=== PATIENT | male | born 1960 | race Hispanic/Latino ===

== ENCOUNTER 2017-07-10 08:35 | Outpatient (CLI) | payer MEDICARE ==
--- OUTSIDE RECORDS SUMMARY | 2017-07-10 08:39 | XMS | Clinical Summary ---
:1960 Author Organization [facility] Address [address] [place] [address] Phone Care Team Providers Name Role Phone , Primary Care Provider Unavailable Allergies Not on File Current Medications Not on file Active Problems Not on file Social History Tobacco Use Types Packs/Day Years Used Date Never Assessed Sex Assigned at Date Recorded Not on file Last Filed Vital Signs Not on file Plan of Treatment Not on file Results Not on filefrom Last 3 Months
[2017-07-10 10:30] LABS: Anion Gap 13 mmol/L (10-20); BUN (Urea Nitrogen) 13 mg/dL (8.4-25.7); Calc. Creatinine Clearance 0 mL/min (70-130); Calcium 9.3 mg/dL (7.8-10.44); Carbon Dioxide 26 mmol/L (22-29); Chloride 100 mmol/L (98-107); Estimated GFR-MDRD 76
--- NOTE | 2017-07-10 12:09 | CT ---
CT ABDOMEN AND PELVIS WITH AND WITHOUT IV CONTRAST: HISTORY: Prostatic hyperplasia. Dysuria. FINDINGS: The lung bases are clear. Each renal collecting system and ureter are decompressed without stone ap parent. The liver is diffusely hypodense. The kidneys have a normal appearance without focal mass. No filling defects are apparent within the urinary system on the delayed images. The prostate gla nd is 5.9 cm in transverse diameter. IMPRESSION: 1. No significant urinary tract abnormalities are apparent. 2. Hepatosteatosis. POS: [facility]
[2017-07-10] MEDS ORDERED: Iopamidol 370 76% 100 ML VIAL ONE (16:36)
== END 2017-07-10 08:36 | disposition home or self-care (01) ==
LOC: CT 08:35
PROVIDERS: ATTEND Urology
DX: N40.0 Benign prostatic hyperplasia without lower urinary tract symptoms (principal); R31.29 Other microscopic hematuria; R10.9 Unspecified abdominal pain
CPT/HCPCS: 36415; 74178; 80048

== ENCOUNTER 2019-05-22 09:19 | Outpatient (CLI) | payer MEDICARE ==
--- NOTE | 2019-05-22 11:59 | RAD ---
FOUR VIEWS CERVICAL SPINE: History: Occlusion and stenosis. Chronic neck pain. FINDINGS: Base of skull and the open mouth views, limited evaluation of the odontoid process. Lateral masses of C1 and C2 articulate appropriately. On the AP projection, no malalignment. Predental space is normal. No prevertebral soft tissue swelling. On the lateral projection, cervical spine is adequately assessed from C1 through C7. Limited evaluation of the cervicothoracic junction. Remote injury to the anterior/inferior aspect of C5 is noted. Vertebral body height is maintained. No fracture. No loss of disc space height. IMPRESSION: Unremarkable cervical spine radiographic series. POS: OFF
== END 2019-05-22 09:20 | disposition home or self-care (01) ==
LOC: SCSRAD 09:19
PROVIDERS: ATTEND Psychiatry & Neurology Neurology
DX: I66.09 Occlusion and stenosis of unspecified middle cerebral artery (principal)
CPT/HCPCS: 72040

== ENCOUNTER 2019-06-05 13:03 | Outpatient (CLI) | payer MEDICARE ==
--- NOTE | 2019-06-05 14:41 | MRI ---
Cervical spine MRI without contrast: 06/05/2019 COMPARISON: None HISTORY: Cervical disc disease TECHNIQUE: Multiplanar multisequence MR imaging of the cervical spine is obtained without contrast FINDINGS: The sagittal STIR imaging demonstrates no focal area of osseous marrow edema. Cervical vertebral body height and alignment appears within normal limits. No prevertebral soft tissu e swelling. There is straightening of the normal cervical lordosis. There is mild degenerative change at the atlantoaxial interspace. C2-3: No central canal or neural foraminal stenosis. C3-4: Tiny central disc protrusion and associated annular tear noted with no central canal or neural foraminal stenosis. C4-5: No central canal or neural foraminal stenosis. C5-6: No central canal or neural foraminal stenosis. C6-7: No central canal or neural foraminal stenosis. C7-T1: No central canal or neural foraminal stenosis. No abnormal signal intensity is identified within the cervical cord. Regional bone marrow signal inte nsity appears within normal limits. IMPRESSION: Small central disc protrusion/annular tear at C3-4 with no associated central canal or ne ural foraminal stenosis.
== END 2019-06-05 13:04 | disposition home or self-care (01) ==
LOC: SCSMRI 13:03
PROVIDERS: ATTEND Psychiatry & Neurology Neurology
DX: M50.30 Other cervical disc degeneration, unspecified cervical region (principal)
CPT/HCPCS: 72141

== ENCOUNTER 2020-05-07 05:40 | Outpatient (CLI) | payer MEDICARE, OTHER ==
[2020-05-07 16:30] LABS: #Eosinphils 0.2 thou/uL (0.0-0.7); #Lymphocytes 1.8 thou/uL (1.20-3.40); #Monocytes 0.5 thou/uL (0.11-0.59); #Neutrophils 4.8 thou/uL (1.40-6.50); %Basophils 0.5 % (0.0-1.0); %Eosinophils 2.1 % (0.0-10.0); %Lymphocytes 24.8 % (21.0-51.0); %Neutrophils 65.5 % (42.0-75.0); Hemoglobin 15.6 g/dL (14.0-18.0); Mean Corpuscular HGB CONC 33.7 g/dL (32.0-36.0); Mean Corpuscular Hemoglobin 28.4 pg (27.0-31.0); Mean Corpuscular Volume 84.3 fL (78.0-98.0); Mean Platelet Volume 8.3 fL (7.4-10.4); Platelet Count 262 thou/uL (130-400); RBC Distribution Width 12.2 % (11.5-14.5); Red Blood Cell (RBC) Count 5.49 mill/uL (4.70-6.10); White Blood Cell (WBC) Count 7.3 thou/uL (4.8-10.8)
[2020-05-07 16:40] LABS: PTT 44.3 sec (22.9-36.1)
[2020-05-07 16:48] LABS: INR-International Normal Ratio 1.1; Prothrombin Time 14.4 sec (12.0-14.7)
[2020-05-07 16:48] LABS: Bacteria/HPF None Seen HPF (None Seen); Bilirubin Negative (Negative); Blood, Urine Negative (Negative); Clarity Clear (Clear); Glucose, Urine (Dipstick) Normal (Negative); Ketone, Urine Negative (Negative); Leukocyte Negative Leu/uL (Negative); Nitrite Negative (Negative); Protein, Urine (Dipstick) Negative (Neg-Trace); RBC/HPF 0-3 HPF (0-3); Specific Gravity, Urine 1.018 (1.002-1.036); Squamous Epithelial None Seen HPF (0-3); Urobilinogen Normal mg/dL (Less than 2); WBC/HPF 0-3 HPF (0-3)
[2020-05-07 16:54] LABS: Urine Culture Reflex No No
[2020-05-07 17:13] LABS: Anion Gap 16 mmol/L (10-20); BUN (Urea Nitrogen) 15 mg/dL (8.4-25.7); Calc. Creatinine Clearance 0 mL/min (70-130); Calcium 9.5 mg/dL (7.8-10.44); Carbon Dioxide 28 mmol/L (22-29); Chloride 98 mmol/L (98-107); Estimated GFR-MDRD 60; Glucose 106 mg/dL (70-105); Potassium 3.6 mmol/L (3.5-5.1); Sodium 138 mmol/L (136-145)
[2020-05-08 14:52] LABS: SARS-CoV-2 MS2 Positive; SARS-CoV-2 N Gene Negative; SARS-CoV-2 S Gene Negative; SARS-CoV-2 by NAA Not Detected (NotDetected); SARS-CoV-2 orf1ab Negative
== END 2020-05-07 05:41 | disposition home or self-care (01) ==
LOC: LABBT 05:40
PROVIDERS: ATTEND Urology
DX: Z01.812 Encounter for preprocedural laboratory examination (principal); Z11.59 Encounter for screening for other viral diseases; Z12.5 Encounter for screening for malignant neoplasm of prostate; Z87.898 Personal history of other specified conditions; R35.1 Nocturia; R31.29 Other microscopic hematuria; M51.36 Other intervertebral disc degeneration, lumbar region; G45.9 Transient cerebral ischemic attack, unspecified; G35 Multiple sclerosis; R39.11 Hesitancy of micturition; R33.0 Drug induced retention of urine
CPT/HCPCS: 80048; 81001; 85025; 85610; 85730; 87086; U0003; 87635

== ENCOUNTER 2020-05-12 07:13 | Day surgery (SDC) | payer MEDICARE ==
[2020-05-06 14:47] VITALS: BMI 30.7
[2020-05-12] MEDS ORDERED: Levofloxacin 500 mg/D5W 100 ml Premix Bag ONE (07:54)
[2020-05-12] MEDS ORDERED: Midazolam HCl 2 mg/2 ml Vial ONE (09:22)
[2020-05-12] MEDS ORDERED: Fentanyl 100 MCG/2 ML VIAL ONE (09:22)
[2020-05-12] MEDS ORDERED: PROPOFOL 200 MG/20 ML VIAL ONE (10:31)
[2020-05-12] MEDS ORDERED: Lidocaine 1% PF 5 ML VIAL ONE (10:31)
[2020-05-12] MEDS ORDERED: Phenazopyridine HCl 97.5 MG TABLET ONE (10:39)
[2020-05-12] MEDS ORDERED: HYDROcodone/Acetaminophen 5/325 mg Tablet ONE (12:51)
--- NOTE | 2020-05-12 13:32 | OP ---
DATE OF PROCEDURE: 05/12/2020 PREOPERATIVE DIAGNOSES: 1. Mr. Fields is a 58-year-old male with history of benign prostatic hyperplasia with incomplete emptying. 2. IPSS score of 27. POSTOPERATIVE DIAGNOSES: 1. Mr. Fields is a 58-year-old male with history of benign prostatic hyperplasia with incomplete emptying. 2. IPSS score of 27. PROCEDURE PERFORMED: Cystoscopy, UroLift implant x7. SURGEON: Sandra Parada DO ANESTHESIA: LMA. COMPLICATIONS: None apparent. DISPOSITION: To recovery room in stable condition. DRAINS: None. ESTIMATED BLOOD LOSS: Minimal. INDICATIONS FOR PROCEDURE AND HISTORY: Mr. Fields is a pleasant 58-year-old male with history of BPH, presents today for UroLift. He did undergo cystoscopy, volume study, urodynamics, this does demonstrate a component of obstructive component, and he desires to proceed with UroLift. He has been fully informed regarding possible secondary procedure, i.e., TURP, possible complications with UroLift implant due to migration, requiring further surgical intervention, chronic pain, clot retention , injury to adjacent organs. All questions were answered to his satisfaction and he desired to proceed. DESCRIPTION OF PROCEDURE: After an informed consent was signed, the patient was taken to the operating room, placed in a dorsal lithotomy position with the genital area prepped and draped in the usual surgical sterile fashion. Bilateral MONAE hose and SCDs were provided. A 22-Mongolian cystoscope was utilized for cystoscopy, which demonstrated normal anterior urethra. The prostatic urethra demonstrated bipolar hyperplasia, moderate in caliber with no median lobe. Bladder was entered, which demonstrated the UOs about 2 to 3 mm proximal to the bladder neck. At this time , we transitioned to a UroLift implant cystoscope with a visual obturator. We placed a left lateral implant first, staying away about 1.5 cm proximal to the bladder neck. We initially placed 3 implants on the left, 3 implants on the right. This created a good anterior channel. There was a mid prostatic urethra with bulging component. Therefore, we did add another implant on the left lateral lobe reducing the bulging component. He had a nice anterior channel from the visual inspection with the verumontanum. He tolerated the procedure uneventfully. We will give him a voiding trial in Day Stay and anticipate discharge without a Lee catheter. He will be sent home with ciprofloxacin for 3 days, Griffin velazquez Job ID: [id number] [facility]
== END 2020-05-12 15:55 | disposition home or self-care (01) ==
LOC: SDC 07:13
PROVIDERS: ATTEND Urology
PROC: 0T7D8DZ Dilation of Urethra with Intraluminal Device, Via Natural or Artificial Opening Endoscopic (ICD-10-PCS; principal; 2020-05-12)
DX: N40.1 Benign prostatic hyperplasia with lower urinary tract symptoms (principal); R39.14 Feeling of incomplete bladder emptying; R39.11 Hesitancy of micturition; R35.1 Nocturia; R31.29 Other microscopic hematuria; G35 Multiple sclerosis; Z79.82 Long term (current) use of aspirin; Z79.84 Long term (current) use of oral hypoglycemic drugs; Z79.899 Other long term (current) drug therapy
CPT/HCPCS: C1889; C9740; J1956; J2250; J2704; J3010

== ENCOUNTER 2020-05-13 02:48 | Emergency (ER) | payer MEDICARE, OTHER ==
[2020-05-13] MEDS ORDERED: B & O PR SCH (05:15)
--- NOTE | 2020-05-13 05:52 | CON ---
DATE OF CONSULTATION: 05/13/2020 This is a 59-year-old male, who was seen in the emergency room at [facility] yesterday, less than 24 hours ago. He underwent a urolith procedure by Dr. Parada. Looking through the records, he had some difficulty emptying and some gross hematuria and had to have a small caliber catheter placed before he went home. This was irrigated back in I think the day stay postop area, but seemed to be draining okay. He went home and said things seemed to be going well. Initially, urine was kind of bloody, but draining adequately, and then during the nighttime it stopped draining. He got distended, had a lot of discomfort and pain. Actually, I think he threw up once or twice, so they came into the ER. Nurses tried to irrigate the catheter of clots, but really could not get much more than maybe 1 clot to come out, kind of a pink to light red color urine. I came in to see him. He had a small caliber catheter in. He was still uncomfortable. We removed that catheter. He was sterilely prepped and draped with Betadine. He had 2 syringes of 2% Xylocaine jelly placed for topical anesthesia and had a 22-Japanese 3-way placed. Irrigated out a couple of small clots. He had 1 clot stuck to the end of the small catheter when it was removed. Could not get any other clots to come out. His urine with irrigation was light red. He had a lot of bladder spasm while doing this. We then plugged the irrigation port, hooked him up to a drainage bag. His urine was kind of a swan red. I did a bladder ultrasound at the bedside. His bladder was empty. 0 to 15 mL in 3 different checks. I think he is having a lot of bladder spasm right now. I do not think he is in clot retention at this point. I think he probably was when he came in. I have written to give him a B and O suppository now. I would like to watch him for about an hour in the ER. I would also like him to drink plenty of fluids and see if his urine is clearing. If his urine is clearing, he is comfortable, and a repeat bladder scan in another hour shows that he is not becoming distended, then I think he could probably go home with this larger catheter and placing the catheter plug in place. I do not know that Dr. Parada will be able to remove his catheter today with him still having the hematuria and the difficulty urinating yesterday, but I will leave that up to her. If his urine is getting darker in terms of the hematuria or if he is starting to become distended, then we will need to admit him and put him on bladder irrigation. Job ID: [id number]
== END 2020-05-13 06:50 | disposition home or self-care (01) ==
LOC: ERS 02:48
DX: N40.1 Benign prostatic hyperplasia with lower urinary tract symptoms (principal); R33.8 Other retention of urine; R31.9 Hematuria, unspecified; I10 Essential (primary) hypertension; Z79.899 Other long term (current) drug therapy
CPT/HCPCS: 99283

== ENCOUNTER 2021-06-14 07:14 | Outpatient (CLI) | payer MEDICARE ==
[2021-06-14] MEDS ORDERED: Magnevist 469MG/ML 20 ML VIAL ONE (09:12)
== END 2021-06-14 07:15 | disposition home or self-care (01) ==
LOC: BICULT 07:14
PROVIDERS: ATTEND Psychiatry & Neurology Neurology
DX: G45.9 Transient cerebral ischemic attack, unspecified (principal)
CPT/HCPCS: 70553; 82565; 93880; A9579

== ENCOUNTER 2022-08-26 19:06 | Inpatient (IN) | payer MEDICARE ==
[2022-08-26 19:41] LABS: #Eosinphils 0.3 thou/uL (0.0-0.7); #Lymphocytes 1.8 thou/uL (1.20-3.40); #Monocytes 0.7 thou/uL (0.11-0.59); #Neutrophils 7.4 thou/uL (1.40-6.50); %Basophils 0.1 % (0.0-1.0); %Lymphocytes 17.7 % (21.0-51.0); %Monocytes 6.7 % (0.0-10.0); %Neutrophils 72.5 % (42.0-75.0); Mean Corpuscular HGB CONC 33.9 g/dL (32.0-36.0); Mean Corpuscular Hemoglobin 28.9 pg (27.0-31.0); Mean Corpuscular Volume 85.4 fl (78.0-98.0); Mean Platelet Volume 8.1 fL (7.4-10.4); Platelet Count 214 10x3/uL (130-400); RBC Distribution Width 12.6 % (11.5-14.5); Red Blood Cell (RBC) Count 4.83 mill/uL (4.70-6.10); White Blood Cell (WBC) Count 10.2 10x3/uL (4.8-10.8)
[2022-08-26 20:01] LABS: ALT (SGPT) 34 U/L (8-55); AST (SGOT) 29 U/L (5-34); Albumin 4.1 g/dL (3.4-4.8); Alkaline Phosphatase 141 U/L (40-110); Anion Gap 13 mmol/L (10-20); BUN (Urea Nitrogen) 14 mg/dL (8.4-25.7); Bilirubin, Total 0.9 mg/dL (0.2-1.2); Calc. Creatinine Clearance 0 mL/min (70-130); Calcium 9.3 mg/dL (7.8-10.44); Carbon Dioxide 28 mmol/L (23-31); Chloride 101 mmol/L (98-107); Estimated GFR 60; Globulin 2.8 g/dL (2.4-3.5); Glucose 145 mg/dL (80-115); Potassium 3.8 mmol/L (3.5-5.1); Protein, Total 6.9 g/dL (5.8-8.1); Sodium 138 mmol/L (136-145)
[2022-08-26 21:50] LABS: Bilirubin Negative (Negative); Blood, Urine Negative (Negative); Clarity Clear (Clear); Glucose, Urine (Dipstick) 300 mg/dL (Negative); Ketone, Urine Negative (Negative); Leukocyte Negative Leu/uL (Negative); Nitrite Negative (Negative); Protein, Urine (Dipstick) Negative (Neg-Trace); Urobilinogen Normal mg/dL (Less than 2)
[2022-08-26] MEDS ORDERED: Acetaminophen 650 MG Suppository PR PRN (22:49)
[2022-08-26] MEDS ORDERED: Lorazepam 2 MG/ML VIAL SLOW IVP PRN (22:49)
[2022-08-26] MEDS ORDERED: Ondansetron ODT 4 MG TAB PO PRN (22:49)
[2022-08-26] MEDS ORDERED: Acetaminophen 325 MG TAB PO PRN (22:49)
[2022-08-26] MEDS ORDERED: Ondansetron PF 4 MG/2 ML Vial IVP PRN (22:49)
[2022-08-26 23:18] LABS: Troponin I Less than 0.010 ng/mL (< 0.028)
[2022-08-26 23:21] LABS: SARS-CoV-2 NAA Rapid Test Not Detected (NotDetected)
[2022-08-27] MEDS: Sodium Chloride 0.9% 1,000 ML IV SCH ×2 (01:49→16:14)
[2022-08-27 02:17] LABS: Troponin I Less than 0.010 ng/mL (< 0.028)
[2022-08-27] MEDS ORDERED: Dextrose 50% Abboject 50 ML SYRINGE SLOW IVP PRN (03:24)
[2022-08-27] MEDS ORDERED: HumaLOG 300 UNITS/3 ML VIAL SC PRN ×2 (03:24)
[2022-08-27] MEDS ORDERED: Dextrose 5% in Water 1,000 ML IV PRN (03:24)
[2022-08-27] MEDS ORDERED: Enoxaparin Sodium 40 MG/0.4 ML SYRINGE ONE (08:51)
[2022-08-27] MEDS: Enoxaparin Sodium 40 MG/0.4 ML SYRINGE SC SCH (08:52)
[2022-08-27] MEDS ORDERED: Iopamidol-370 76% 500 ML 1 ML ONE (09:02)
[2022-08-27 09:44] LABS: #Eosinphils 0.2 thou/uL (0.0-0.7); #Lymphocytes 1.7 thou/uL (1.20-3.40); #Monocytes 0.4 thou/uL (0.11-0.59); #Neutrophils 3.7 thou/uL (1.40-6.50); %Basophils 0.3 % (0.0-1.0); %Eosinophils 3.7 % (0.0-10.0); %Lymphocytes 28.1 % (21.0-51.0); %Monocytes 7.2 % (0.0-10.0); %Neutrophils 60.7 % (42.0-75.0); Hemoglobin 13.6 g/dL (14.0-18.0); Mean Corpuscular HGB CONC 34.4 g/dL (32.0-36.0); Mean Corpuscular Hemoglobin 29.4 pg (27.0-31.0); Mean Corpuscular Volume 85.4 fl (78.0-98.0); Platelet Count 190 10x3/uL (130-400); RBC Distribution Width 12.4 % (11.5-14.5); Red Blood Cell (RBC) Count 4.63 mill/uL (4.70-6.10); White Blood Cell (WBC) Count 6.2 10x3/uL (4.8-10.8)
[2022-08-27 09:57] LABS: Anion Gap 13 mmol/L (10-20); BUN (Urea Nitrogen) 11 mg/dL (8.4-25.7); Calc. Creatinine Clearance 0 mL/min (70-130); Calcium 8.8 mg/dL (7.8-10.44); Carbon Dioxide 25 mmol/L (23-31); Chloride 102 mmol/L (98-107); Estimated GFR 81; Glucose 232 mg/dL (80-115); Potassium 3.3 mmol/L (3.5-5.1); Sodium 137 mmol/L (136-145)
[2022-08-27] MEDS: Pregabalin 75 MG CAP PO SCH ×2 (11:53→21:26)
[2022-08-27] MEDS ORDERED: Potassium Chloride 20 MEQ TAB PO SCH (13:30)
[2022-08-27] MEDS ORDERED: Potassium Chloride 20 MEQ TAB ONE (13:46)
[2022-08-27] MEDS ORDERED: Lactated Ringer's 1,000 ML IV SCH (19:00)
[2022-08-27] MEDS: Carvedilol 25 MG TAB PO SCH ×2 (21:25→21:43)
[2022-08-27] MEDS: Atorvastatin Calcium 40 MG TAB PO SCH (21:25)
[2022-08-27] MEDS: levETIRAcetam 500 MG TAB PO SCH (21:27)
[2022-08-27 22:06] VITALS: BMI 29.4
[2022-08-28] MEDS ORDERED: Non-Formulary Item 1 EACH (Valsartan/Hydrochlorothiazide [Valsartan-Hctz 320-25 Mg Tab] 1 PO SCH (09:00)
[2022-08-28] MEDS ORDERED: Lisinopril/Hydrochlorothiazide 20/25 mg Tablet PO SCH (09:00)
[2022-08-28] MEDS: Enoxaparin Sodium 40 MG/0.4 ML SYRINGE SC SCH (09:26)
[2022-08-28] MEDS: Pregabalin 75 MG CAP PO SCH ×2 (09:26→21:36)
[2022-08-28] MEDS: Tamsulosin HCl 0.4 MG CAP PO SCH (09:26)
[2022-08-28] MEDS: levETIRAcetam 500 MG TAB PO SCH ×2 (09:27→21:36)
[2022-08-28] MEDS: Carvedilol 25 MG TAB PO SCH ×2 (09:27→21:37)
[2022-08-28] MEDS: Valsartan 80 MG TAB PO SCH (09:27)
[2022-08-28] MEDS: Aspirin 325 MG TAB PO SCH (09:27)
[2022-08-28] MEDS: Hydrochlorothiazide 25 MG TAB PO SCH (09:27)
[2022-08-28 09:40] LABS: Anion Gap 11 mmol/L (10-20); BUN (Urea Nitrogen) 9 mg/dL (8.4-25.7); Calc. Creatinine Clearance 91 mL/min (70-130); Calcium 8.9 mg/dL (7.8-10.44); Carbon Dioxide 24 mmol/L (23-31); Chloride 107 mmol/L (98-107); Estimated GFR 85; Glucose 167 mg/dL (80-115); Potassium 3.6 mmol/L (3.5-5.1); Sodium 138 mmol/L (136-145)
[2022-08-28] MEDS ORDERED: Amlodipine 5 MG TAB PO SCH (13:15)
[2022-08-28] MEDS: Atorvastatin Calcium 40 MG TAB PO SCH (21:35)
[2022-08-29] MEDS: Enoxaparin Sodium 40 MG/0.4 ML SYRINGE SC SCH (08:03)
[2022-08-29] MEDS: Tamsulosin HCl 0.4 MG CAP PO SCH (08:04)
[2022-08-29] MEDS: Aspirin 325 MG TAB PO SCH (08:04)
[2022-08-29] MEDS: Pregabalin 75 MG CAP PO SCH (08:04)
[2022-08-29] MEDS: Hydrochlorothiazide 25 MG TAB PO SCH (08:04)
[2022-08-29] MEDS: Carvedilol 25 MG TAB PO SCH (08:04)
[2022-08-29] MEDS: Valsartan 80 MG TAB PO SCH (08:04)
[2022-08-29] MEDS: levETIRAcetam 500 MG TAB PO SCH (08:05)
[2022-08-29] MEDS ORDERED: Amlodipine 5 MG TAB PO SCH (09:00)
[2022-08-29 11:50] VITALS: TEMP 97.7
[2022-08-29 13:15] VITALS: BP 140/71
== END 2022-08-29 15:50 | disposition home or self-care (01) | DRG 100 ==
LOC: ERS 19:06 → ERHOLD 22:26 → OBSVTOIN 08-27 14:20 → NEURO 08-27 15:13
PROVIDERS: ADMIT Internal Medicine; ATTEND Internal Medicine
DX: G40.909 Epilepsy, unspecified, not intractable, without status epilepticus (principal); G93.41 Metabolic encephalopathy; N17.9 Acute kidney failure, unspecified; Z20.822 Contact with and (suspected) exposure to COVID-19; R55 Syncope and collapse; N40.0 Benign prostatic hyperplasia without lower urinary tract symptoms; I25.10 Atherosclerotic heart disease of native coronary artery without angina pectoris; I10 Essential (primary) hypertension; E11.9 Type 2 diabetes mellitus without complications; E87.6 Hypokalemia; Z95.1 Presence of aortocoronary bypass graft; Z79.82 Long term (current) use of aspirin; Z79.84 Long term (current) use of oral hypoglycemic drugs
CPT/HCPCS: 36415; 36416; 70450; 70498; 70553; 71045; 80048; 80053; 81003; 82088; 83835; 83880; 84146; 84244; 84484; 85025; 93005; 93306; 95816; 95819; 95957; 96372; G0378; J1650; J7050; J7120; Q9967; U0002

== ENCOUNTER 2022-09-04 13:11 | Outpatient (CLI) | payer MEDICARE ==
[2022-09-04 14:33] LABS: #Eosinphils 0.3 10x3/uL (0.0-0.5); #Monocytes 0.5 10x3/uL (0.0-1.1); %Basophils 0.6 % (0.0-2.0); %Eosinophils 4.2 % (0.0-6.0); %Lymphocytes 30.2 % (18.0-47.0); %Monocytes 7.5 % (0.0-10.0); %Neutrophils 57.2 % (40.0-75.0); Hemoglobin 14.5 g/dL (13.5-17.5); Mean Corpuscular HGB CONC 36.1 g/dL (32.0-36.0); Mean Corpuscular Hemoglobin 28.8 pg (27.0-33.0); Mean Corpuscular Volume 79.8 fl (81.2-95.1); Platelet Count 267 10x3/uL (150-450); RBC Distribution Width 13.1 % (11.5-14.5); Red Blood Cell (RBC) Count 5.04 10x6/uL (4.32-5.72); White Blood Cell (WBC) Count 6.9 10x3/uL (3.5-10.5)
[2022-09-04 14:55] LABS: ALT (SGPT) 43 U/L (8-55); AST (SGOT) 25 U/L (5-34); Albumin 4.4 g/dL (3.4-4.8); Alkaline Phosphatase 168 U/L (40-110); Anion Gap 14 mmol/L (10-20); BUN (Urea Nitrogen) 14 mg/dL (8.4-25.7); Bilirubin, Total 0.8 mg/dL (0.2-1.2); Calc. Creatinine Clearance 0 mL/min (70-130); Calcium 9.6 mg/dL (7.8-10.44); Carbon Dioxide 26 mmol/L (23-31); Chloride 103 mmol/L (98-107); Estimated GFR 73; Globulin 2.7 g/dL (2.4-3.5); Glucose 130 mg/dL (80-115); Potassium 4.2 mmol/L (3.5-5.1); Protein, Total 7.1 g/dL (5.8-8.1); Sodium 139 mmol/L (136-145)
== END 2022-09-04 13:12 | disposition home or self-care (01) ==
LOC: LABBT 13:11
PROVIDERS: ATTEND Internal Medicine Cardiovascular Disease
DX: Z01.812 Encounter for preprocedural laboratory examination (principal); R07.9 Chest pain, unspecified
CPT/HCPCS: 80053; 85025

== ENCOUNTER 2022-09-06 05:54 | Day surgery (SDC) | payer MEDICARE ==
[2022-09-05 10:49] VITALS: BMI 29.7
[2022-09-06] MEDS ORDERED: Lidocaine 1% (PF) 30 ML VIAL ONE (06:14)
[2022-09-06] MEDS ORDERED: Lidocaine 1% PF 5 ML VIAL ONE (06:14)
[2022-09-06] MEDS ORDERED: Verapamil 5 MG/2 ML VIAL ONE (06:14)
[2022-09-06] MEDS ORDERED: Nitroglycerin 100MG/250ML BOT 0 ML ONE (06:14)
[2022-09-06] MEDS ORDERED: Adenosine 6 MG/2 ML VIAL ONE (06:14)
[2022-09-06] MEDS ORDERED: Heparin 10,000 UNITS/ 10 ML VIAL ONE (06:14)
[2022-09-06] MEDS ORDERED: FENTANYL 50 MCG/ML 1 ML VIAL ONE (07:02)
[2022-09-06] MEDS ORDERED: Midazolam HCl 2 mg/2 ml Vial ONE (07:02)
[2022-09-06 08:34] LABS: Cardiac Risk 3.5 (Less than 4.5)
[2022-09-06] MEDS ORDERED: Iopamidol 370 76% 100 ML VIAL ONE (14:47)
== END 2022-09-06 10:45 | disposition home or self-care (01) ==
LOC: CCL 05:54
PROVIDERS: ATTEND Internal Medicine Cardiovascular Disease
PROC: 4A023N7 Measurement of Cardiac Sampling and Pressure, Left Heart, Percutaneous Approach (ICD-10-PCS; principal; 2022-09-06)
PROC: B2111ZZ Fluoroscopy of Multiple Coronary Arteries using Low Osmolar Contrast (ICD-10-PCS; 2022-09-06)
PROC: B2181ZZ Fluoroscopy of Left Internal Mammary Bypass Graft using Low Osmolar Contrast (ICD-10-PCS; 2022-09-06)
PROC: B2131ZZ Fluoroscopy of Multiple Coronary Artery Bypass Grafts using Low Osmolar Contrast (ICD-10-PCS; 2022-09-06)
DX: R07.9 Chest pain, unspecified (principal); R55 Syncope and collapse; I25.10 Atherosclerotic heart disease of native coronary artery without angina pectoris; I25.82 Chronic total occlusion of coronary artery; G47.30 Sleep apnea, unspecified; E78.00 Pure hypercholesterolemia, unspecified; N40.0 Benign prostatic hyperplasia without lower urinary tract symptoms; I10 Essential (primary) hypertension; Z79.82 Long term (current) use of aspirin; Z79.84 Long term (current) use of oral hypoglycemic drugs; Z79.899 Other long term (current) drug therapy; Z95.1 Presence of aortocoronary bypass graft; Z95.5 Presence of coronary angioplasty implant and graft
CPT/HCPCS: 80061; 93455; 99152; C1769; J0153; J1644; J2001; J2250; J3010

== ENCOUNTER 2022-09-21 13:17 | Outpatient (CLI) | payer MEDICARE | END 2022-09-21 13:18 | disposition home or self-care (01) | LOC: BICRAD 13:17 | PROVIDERS: ATTEND Family Medicine | DX: E11.9 Type 2 diabetes mellitus without complications (principal) | CPT/HCPCS: 71046 ==

== ENCOUNTER 2022-11-26 12:02 | Emergency (ER) | payer OTHER ==
[~2022-11-26 12:02] MED LIST: Iopamidol-370 76% 500 ML 1 ML ONE
[2022-11-26 12:58] LABS: #Eosinphils 0.2 thou/uL (0.0-0.7); #Lymphocytes 1.6 thou/uL (1.20-3.40); #Monocytes 0.4 thou/uL (0.11-0.59); #Neutrophils 4.9 thou/uL (1.40-6.50); %Basophils 0.2 % (0.0-1.0); %Eosinophils 3.4 % (0.0-10.0); %Lymphocytes 21.6 % (21.0-51.0); %Monocytes 6.2 % (0.0-10.0); %Neutrophils 68.5 % (42.0-75.0); Mean Corpuscular HGB CONC 33.9 g/dL (32.0-36.0); Mean Corpuscular Hemoglobin 29.3 pg (27.0-31.0); Mean Corpuscular Volume 86.3 fl (78.0-98.0); Mean Platelet Volume 7.5 fL (7.4-10.4); Platelet Count 215 10x3/uL (130-400); RBC Distribution Width 13.1 % (11.5-14.5); Red Blood Cell (RBC) Count 4.79 mill/uL (4.70-6.10); White Blood Cell (WBC) Count 7.2 10x3/uL (4.8-10.8)
[2022-11-26 13:20] LABS: ALT (SGPT) 28 U/L (8-55); AST (SGOT) 26 U/L (5-34); Albumin 4.4 g/dL (3.4-4.8); Alkaline Phosphatase 115 U/L (40-110); Anion Gap 13 mmol/L (10-20); BUN (Urea Nitrogen) 10 mg/dL (8.4-25.7); Bilirubin, Total 0.8 mg/dL (0.2-1.2); Calc. Creatinine Clearance 0 mL/min (70-130); Calcium 9.5 mg/dL (7.8-10.44); Carbon Dioxide 25 mmol/L (23-31); Chloride 104 mmol/L (98-107); Estimated GFR 61; Globulin 2.8 g/dL (2.4-3.5); Glucose 106 mg/dL (80-115); Potassium 4.4 mmol/L (3.5-5.1); Protein, Total 7.2 g/dL (5.8-8.1); Sodium 138 mmol/L (136-145)
[2022-11-26] MEDS ORDERED: Pantoprazole 40 MG VIAL ONE (13:42)
[2022-11-26] MEDS ORDERED: Ondansetron PF 4 MG/2 ML Vial ONE ×2 (13:42→15:01)
[2022-11-26] MEDS ORDERED: Morphine 4 MG/ML VIAL ONE ×2 (13:42→15:00)
[2022-11-26 15:02] LABS: Bilirubin Negative (Negative); Blood, Urine Negative (Negative); Clarity Clear (Clear); Glucose, Urine (Dipstick) Normal (Negative); Ketone, Urine Negative (Negative); Leukocyte Negative Leu/uL (Negative); Nitrite Negative (Negative); Protein, Urine (Dipstick) Negative (Neg-Trace); Specific Gravity, Urine 1.014 (1.002-1.036); Urobilinogen Normal mg/dL (Less than 2)
== END 2022-11-26 15:10 | disposition home or self-care (01) ==
LOC: ERS 12:02
DX: K20.90 Esophagitis, unspecified without bleeding (principal); I10 Essential (primary) hypertension
CPT/HCPCS: 36415; 71045; 74177; 80053; 81003; 84484; 85025; 93005; 96374; 96375; C9113; J2270; J2405; Q9967

== ENCOUNTER 2024-05-29 06:39 | Day surgery (SDC) | payer MEDICARE ==
[2024-05-29 07:20] LABS: #Basophils Less than 0.03 10x3/uL (0.0-0.2); %Basophils 0.3 % (0.0-1.0); %Eosinophils 3.4 % (0.0-10.0); %Lymphocytes 24.7 % (21.0-51.0); %Monocytes 7.3 % (0.0-10.0); %Neutrophils 63.9 % (42.0-75.0); Hematocrit 38.5 % (42.0-52.0); Hemoglobin 13.5 g/dL (14.0-18.0); Mean Corpuscular HGB CONC 35.1 g/dL (32.0-36.0); Mean Corpuscular Hemoglobin 29.6 pg (27.0-31.0); Mean Corpuscular Volume 84.4 fL (78.0-98.0); Mean Platelet Volume 9.4 fL (7.4-10.4); Platelet Count 213 10x3/uL (130-400); RBC Distribution Width 12.8 % (11.5-14.5); Red Blood Cell (RBC) Count 4.56 mill/uL (4.70-6.10)
[2024-05-29 07:30] LABS: Anion Gap 14 mmol/L (10-20); BUN (Urea Nitrogen) 12 mg/dL (8.4-25.7); Calc. Creatinine Clearance 100 mL/min (70-130); Calcium 8.8 mg/dL (7.8-10.44); Carbon Dioxide 23 mmol/L (23-31); Chloride 108 mmol/L (98-107); Estimated GFR 93; Glucose 159 mg/dL (80-115); Potassium 3.7 mmol/L (3.5-5.1); Sodium 141 mmol/L (136-145)
[2024-05-29] MEDS ORDERED: AFRIN NASAL MIST 15 ML BOT ONE (07:37)
[2024-05-29] MEDS ORDERED: Dexamethasone 20 MG/5 ML VIAL ONE (08:18)
[2024-05-29] MEDS ORDERED: Lidocaine 1% PF 5 ML VIAL ONE (08:18)
[2024-05-29] MEDS ORDERED: fentaNYL PF 100 MCG/2 ML SYRINGE ONE (08:18)
[2024-05-29] MEDS ORDERED: PROPOFOL 20 ML ONE (08:18)
[2024-05-29] MEDS ORDERED: Ondansetron PF 4 MG/2 ML Vial ONE (08:18)
[2024-05-29] MEDS ORDERED: Lidocaine 2% 6 ML (Jelly) SYR ONE (08:19)
[2024-05-29] MEDS ORDERED: Lidocaine 4% Topical Sol 50 ML BOT ONE (08:23)
[2024-05-29] MEDS ORDERED: Oxymetazoline HCl 0.05% (30 ML BOT) ONE (08:27)
[2024-05-29] MEDS ORDERED: EPINEPHrine 1 MG/ML VIAL ONE (08:27)
[2024-05-29] MEDS ORDERED: Lidocaine 1% (PF) 30 ML VIAL ONE (08:28)
[2024-05-29] MEDS ORDERED: Bacitracin Zinc Ointment 30 gm TUBE ONE (08:28)
[2024-05-29] MEDS ORDERED: Labetalol HCl 100 MG/20 ML VIAL ONE (08:35)
[2024-05-29] MEDS ORDERED: Rocuronium Bromide 10 MG/ML (10ML VIAL) ONE (09:58)
[2024-05-29] MEDS ORDERED: SUGAMMADEX SODIUM 200 MG/2 ML VIAL ONE (09:58)
[2024-05-29] MEDS ORDERED: ePHEDrine Sulfate 50 MG/10 ML VIAL ONE (10:12)
[2024-05-29] MEDS ORDERED: hydrALAZINE 20 MG/ML VIAL ONE (12:26)
== END 2024-05-29 14:10 | disposition home or self-care (01) ==
LOC: SDC 06:39
PROVIDERS: ATTEND Specialist
PROC: 09BM8ZZ Excision of Nasal Septum, Via Natural or Artificial Opening Endoscopic (ICD-10-PCS; principal; 2024-05-29)
PROC: 09TL8ZZ Resection of Nasal Turbinate, Via Natural or Artificial Opening Endoscopic (ICD-10-PCS; 2024-05-29)
DX: J34.2 Deviated nasal septum (principal); J34.3 Hypertrophy of nasal turbinates; I10 Essential (primary) hypertension; E78.00 Pure hypercholesterolemia, unspecified; E11.9 Type 2 diabetes mellitus without complications; Z79.84 Long term (current) use of oral hypoglycemic drugs; Z79.82 Long term (current) use of aspirin; Z79.899 Other long term (current) drug therapy; Z95.1 Presence of aortocoronary bypass graft; Z98.890 Other specified postprocedural states
CPT/HCPCS: 30140; 30520; 80048; 85025; 93005; J0171; J0360; J1100; J2001; J2405; J2704; 36415; 93010